=== PATIENT | male | born 1970 | race Caucasian/White ===

== ENCOUNTER → 2016-09-23 | Outpatient (CLI) | payer BC | END | disposition home or self-care (01) | LOC: AMB 09:31 | DX: L72.0 Epidermal cyst (principal); E78.00 Pure hypercholesterolemia, unspecified; N40.0 Benign prostatic hyperplasia without lower urinary tract symptoms; I83.893 Varicose veins of bilateral lower extremities with other complications | CPT/HCPCS: 88304 ==